=== PATIENT | female | born 1950 | race Two or more races ===

== ENCOUNTER 2019-01-27 04:43 | Inpatient (IN) | payer MEDICARE ==
[~2019-01-27] VITALS: Ht 175.3 cm; Wt 82.8 kg
[2019-01-27] MEDS ORDERED: ACETAMINOPHEN 325 MG TABLET PO PRN (05:00)
[2019-01-27] MEDS ORDERED: ZOLPIDEM TARTRATE 5 MG TABLET PO PRN (05:00)
[2019-01-27] MEDS ORDERED: MAGNESIUM HYDROXIDE 30 ML UDC PO PRN (05:00)
[2019-01-27] MEDS ORDERED: CEPH-570 PO (05:08)
[2019-01-27 05:10] VITALS: BP 142/66
[2019-01-27] MEDS ORDERED: TRAZ-182 PO (05:19)
[2019-01-27] MEDS ORDERED: TRAM50TA2 PO (05:19)
[2019-01-27] MEDS ORDERED: QUET200T PO (05:19)
[2019-01-27] MEDS ORDERED: LITH300T3 PO (05:19)
[2019-01-27] MEDS ORDERED: LAMO200T2 PO (05:19)
[2019-01-27] MEDS ORDERED: LURA80TA PO (05:19)
[2019-01-27] MEDS ORDERED: LEVO75TA7 PO (05:19)
[2019-01-27] MEDS ORDERED: SIMV20TA6 PO (05:19)
[2019-01-27] MEDS ORDERED: BACL10TA PO (05:19)
--- NOTE | 2019-01-27 06:14 | NUR ---
GPS-COMPUTER INFORMATION SYSTEMS INSTRUCTOR NOTES: ADMITTED A 68 YR-OLD,FEMALE ADMITTED ON 5150 FOR DTS. PER HOLD, A/O X4, AMBULATORY, IN NO APPARENT DISTRESS, PT NOTED WITH DEPRESSED MOOD AND CONGRUENT AFFECT, SCATTERED TOPICS AND EMOTIONS. PT DENIED ACTIVE HI OR PARANOIA AT THIS TIME. NON-COMPLIANT WITH MEDICATIONS. PER PT HE IS DEPRESSED BECAUSE OF HIS BOYFRIEND AND "IM SUICIDAL BUT I DONT HAVE PLAN" REALITY ORIENTATION PROVIDED. NO C/O PAIN OR DISCOMFORT NOTED. HEAD TO TOE ASSESSMENT DONE SKIN INTACT, DR. MONTELONGO ORDERED NOTIFIED, ALL BELONGINGS CHECKED, BED LOCKED AND PLACED ON LOWEST POSITION TO MAINTAIN SAFETY. FALL PRECAUTIONS IMPLEMENTED. WILL CONTINUE TO MONITOR Q15 MINS. FOR SAFETY AND BEHAVIOR.
--- NOTE | 2019-01-27 06:37 | NUR ---
SPOKE TO PERSON TO NOTIFY CORINE MOISE AWARE PT IS ADMITTED TO [facility]
--- NOTE | 2019-01-27 06:52 | NUR ---
ENDORSE NEXT SHIFT TO CALL [facility]. CHARGE NURSE AWARE. PER HOSPITALIST ENDORSE TO AM DarrenD
[2019-01-27 08:00] VITALS: BP 135/80
[2019-01-27 16:00] VITALS: BP 152/90
[2019-01-27] MEDS: SIMVASTATIN 20 MG TABLET PO SCH (17:39)
[2019-01-27] MEDS: BACLOFEN (10 MG) 10 MG TABLET PO SCH (17:39)
[2019-01-27] MEDS: LEVOTHYROXINE SODIUM 75 MCG TABLET PO SCH (17:39)
[2019-01-27] MEDS: CEPHALEXIN MONOHYDRATE 500 MG CAPSULE PO SCH (17:39)
[2019-01-27 20:00] VITALS: BP 137/77
[2019-01-27] MEDS: LITHIUM CARBONATE (300 MG CAP) 300 MG CAPSULE PO SCH (21:00)
[2019-01-27] MEDS: LamoTRIgine 100 MG TABLET PO SCH (21:00)
[2019-01-27] MEDS: QUETIAPINE FUMARATE 100 MG TABLET PO SCH (21:45)
[2019-01-27] MEDS: LORAZEPAM 0.5 MG TABLET PO PRN (22:50)
[2019-01-28] MEDS: BACLOFEN (10 MG) 10 MG TABLET PO SCH ×3 (06:58→17:48)
--- NOTE | 2019-01-28 06:58 | NUR ---
RN NOTES PATIENT ASKED FOR HER BACLOFEN WHICH IS DUE FOR 0900AM... CHARGE NURSE MADE AWARE THAT I'M GOING TO GIVE PATIENT'S MEDICATION EARLIER THAN DUE TIME
[2019-01-28 07:17] LABS: BASOPHILS % (AUTO) 0.6 % (0.0-2.0); EOSINOPHILS % (AUTO) 4.2 % (0.0-6.0); HEMATOCRIT 42 % (33-45); HEMOGLOBIN 14.3 g/dL (11.5-14.8); LYMPHOCYTES # (AUTO) 2.1 /CMM (0.8-4.8); LYMPHOCYTES % (AUTO) 39.6 % (20.0-44.0); MEAN CORPUSCULAR HGB CONC 34 g/dl (31.0-36.0); MEAN CORPUSCULAR VOLUME 94 fL (82-100); MONOCYTES # (AUTO) 0.6 /CMM (0.1-1.30); MONOCYTES % (AUTO) 11.9 % (2.0-12.0); NEUTROPHILS # (AUTO) 2.3 /CMM (1.8-8.9); NEUTROPHILS % (AUTO) 43.7 % (43.0-81.0); PLATELET COUNT (AUTO) 238 /CMM (150-450); RED BLOOD CELL COUNT(AUTO) 4.45 MIL/uL (4.0-5.2); WHITE BLOOD COUNT (AUTO) 5.4 K/uL (4.3-11.0)
[2019-01-28 07:46] LABS: ALBUMIN 3.4 g/dL (3.4-5.0); BILIRUBIN,TOTAL 0.4 mg/dL (0.2-1.0); CREATININE 0.9 mg/dL (0.6-1.3); POTASSIUM 4.2 mmol/L (3.5-5.1); TOTAL PROTEIN, SERUM 6.3 g/dL (6.4-8.2)
[2019-01-28 07:48] LABS: CHOLESTEROL 130 mg/dL (<200); HDL CHOLESTEROL 51 mg/dL (40-60); LDL 73 mg/dL (0-99); TRIGLYCERIDES 49 mg/dL (30-150)
[2019-01-28 07:56] LABS: THYROID STIMULATING HORMONE 5.149 uIU/mL (0.358-3.74)
[2019-01-28 08:00] VITALS: BP 136/85
[2019-01-28] MEDS: LEVOTHYROXINE SODIUM 75 MCG TABLET PO SCH (08:25)
[2019-01-28] MEDS: LamoTRIgine 100 MG TABLET PO SCH ×2 (08:25→20:13)
[2019-01-28] MEDS: CEPHALEXIN MONOHYDRATE 500 MG CAPSULE PO SCH ×3 (08:25→17:48)
[2019-01-28] MEDS: LITHIUM CARBONATE (300 MG CAP) 300 MG CAPSULE PO SCH ×2 (08:25→20:13)
[2019-01-28] MEDS: TRAMADOL HCL 50 MG TABLET PO PRN ×2 (09:32→17:08)
[2019-01-28 16:00] VITALS: BP 125/72
[2019-01-28] MEDS: SIMVASTATIN 20 MG TABLET PO SCH (17:49)
[2019-01-28 19:52] VITALS: BP 143/96
[2019-01-28] MEDS: QUETIAPINE FUMARATE 100 MG TABLET PO SCH (21:15)
[2019-01-29] MEDS: TRAMADOL HCL 50 MG TABLET PO PRN ×2 (06:24→18:18)
[2019-01-29 08:00] VITALS: BP 126/83
[2019-01-29] MEDS: BACLOFEN (10 MG) 10 MG TABLET PO SCH ×3 (08:10→17:00)
[2019-01-29] MEDS: CEPHALEXIN MONOHYDRATE 500 MG CAPSULE PO SCH ×3 (08:10→17:00)
[2019-01-29] MEDS: LamoTRIgine 100 MG TABLET PO SCH ×2 (08:10→20:36)
[2019-01-29] MEDS: LEVOTHYROXINE SODIUM 75 MCG TABLET PO SCH (08:10)
[2019-01-29] MEDS: LITHIUM CARBONATE (300 MG CAP) 300 MG CAPSULE PO SCH ×2 (08:10→20:36)
[2019-01-29 16:00] VITALS: BP 148/82
[2019-01-29] MEDS: SIMVASTATIN 20 MG TABLET PO SCH (18:18)
[2019-01-29 20:25] VITALS: BP 123/63
[2019-01-29] MEDS: QUETIAPINE FUMARATE 100 MG TABLET PO SCH (21:15)
[2019-01-30] MEDS: MAG HYDROX/AL HYDROX/SIMETH 30 ML UDC PO PRN ×3 (03:47→16:37)
[2019-01-30 07:23] LABS: APPEARANCE,URINE CLEAR (CLEAR); BILIRUBIN,URINE NEGATIVE (NEGATIVE); BLOOD, URINE TRACE-INTA Ery/uL (NEGATIVE); COLOR,URINE YELLOW (YELLOW); KETONES,URINE NEGATIVE (NEGATIVE); LEUKOCYTE ESTERASE ,URINE NEGATIVE (NEGATIVE); NITRITE, URINE NEGATIVE (NEGATIVE); PROTEIN,URINE NEGATIVE (NEGATIVE); UGLUCOSE NEGATIVE (NEGATIVE); UROBILINOGEN,URINE 0.2 EU/dL (0.2)
[2019-01-30 07:30] LABS: BACTERIA,URINE Few /HPF (None Seen); SQUAMOUS EPITHELIAL CELL,UR Few /HPF (None Seen); WBC,URINE 0-2 /HPF (0-3)
[2019-01-30] MEDS: LEVOTHYROXINE SODIUM 75 MCG TABLET PO SCH (07:43)
[2019-01-30 08:00] VITALS: BP 147/91
[2019-01-30] MEDS: BACLOFEN (10 MG) 10 MG TABLET PO SCH ×3 (08:36→16:37)
[2019-01-30] MEDS: CEPHALEXIN MONOHYDRATE 500 MG CAPSULE PO SCH ×3 (08:36→16:37)
[2019-01-30] MEDS: LamoTRIgine 100 MG TABLET PO SCH ×2 (08:36→20:04)
[2019-01-30] MEDS: LITHIUM CARBONATE (300 MG CAP) 300 MG CAPSULE PO SCH ×2 (08:36→20:04)
--- NOTE | 2019-01-30 12:07 | NUR ---
SW contacted [facility] Address: [address] [place] [address] and spoke with Angelina, senior contracts administrator who stated pt is able to return back to the facility.
--- NOTE | 2019-01-30 13:30 | NUR ---
SW spoke with pts sister Xenia [phone] for collateral information and discharge planning.
--- NOTE | 2019-01-30 13:39 | NUR ---
INITIAL DISCHARGE PLAN: Patient will return to [facility] Address: [address] [facility], [place] [address] . WYATT spoke with Angelina, property administrator who stated pt is able to return back to the facility. WYATT will help form a safe and proper discharge in collaboration with .
--- NOTE | 2019-01-30 15:32 | NUR ---
SUPPORTIVE COUNSELING: SW discussed treatment plan with pt, pt was anxious and stated she did not want to stay in the hospital for that long. SW explained that part of her treatment was to discuss feelings of sadness or depression with SW or thoughts of Suicide. Pt agreed and signed treatment plan.
[2019-01-30 16:00] VITALS: BP 114/59
[2019-01-30] MEDS: SIMVASTATIN 20 MG TABLET PO SCH (17:51)
[2019-01-30 20:06] VITALS: BP 163/84
[2019-01-30] MEDS: LORAZEPAM 0.5 MG TABLET PO PRN (20:24)
[2019-01-30] MEDS: QUETIAPINE FUMARATE 100 MG TABLET PO SCH (21:05)
[2019-01-30 21:10] VITALS: BP 138/89
[2019-01-31 08:00] VITALS: BP 151/81
[2019-01-31] MEDS: BACLOFEN (10 MG) 10 MG TABLET PO SCH ×3 (08:32→17:18)
[2019-01-31] MEDS: PANTOPRAZOLE 40 MG TABLET.DR PO SCH (08:32)
[2019-01-31] MEDS: NICOTINE PATCH (21MG) 21 MG PATCH.TD24 TD SCH (08:32)
[2019-01-31] MEDS: CEPHALEXIN MONOHYDRATE 500 MG CAPSULE PO SCH ×2 (08:32→12:58)
[2019-01-31] MEDS: LITHIUM CARBONATE (300 MG CAP) 300 MG CAPSULE PO SCH ×2 (08:32→20:33)
[2019-01-31] MEDS: LEVOTHYROXINE SODIUM 75 MCG TABLET PO SCH (08:32)
[2019-01-31] MEDS: LamoTRIgine 100 MG TABLET PO SCH ×3 (09:00→20:32)
--- NOTE | 2019-01-31 15:51 | NUR ---
GROUP THERAPY: Pt was encouraged to attend group therapy pt stated, "I'm really tired and sleepy, I slept fine last night but I'm still so tired can you find out why I have been so tired." Pt was present but did not participate pt was playing with a puzzle.
[2019-01-31 16:00] VITALS: BP 158/93
--- NOTE | 2019-01-31 16:18 | NUR ---
SUPPORTIVE COUNSELING: Pt asked to speak to SW regarding per probable cause hearing that was scheduled on Tuesday01/29/19. Pt stated that no one spoke to her and that she does not remember signing her recertification. SW reminded patient that a patients rights advocate came to speak to her on Tuesday and she stated it never happened. Pt appeared paranoid and also stated that she was going to file a grievance for not being given the opportunity to attend her hearing. SW informed her that she was given the opportunity on Tuesday and she did not contest her recertification and the Technical Program Manager upheld the 5250 and now the psychiatrist will discharge patient when she is stable for discharge. Pt did not agree and stated she needed to speak to the psychiatrist right away. SW explained that the psychiatrist will come tomorrow morning an she can address her discharge concerns with him then.
[2019-01-31] MEDS: SIMVASTATIN 20 MG TABLET PO SCH (17:18)
[2019-01-31 20:00] VITALS: BP 135/75
[2019-01-31] MEDS: TRAMADOL HCL 50 MG TABLET PO PRN (20:33)
[2019-01-31] MEDS: QUETIAPINE FUMARATE 100 MG TABLET PO SCH (21:50)
[2019-02-01] MEDS: MAG HYDROX/AL HYDROX/SIMETH 30 ML UDC PO PRN (05:15)
[2019-02-01 08:00] VITALS: BP 133/77
[2019-02-01] MEDS: LEVOTHYROXINE SODIUM 75 MCG TABLET PO SCH (08:11)
[2019-02-01] MEDS: PANTOPRAZOLE 40 MG TABLET.DR PO SCH (08:11)
[2019-02-01] MEDS: LITHIUM CARBONATE (300 MG CAP) 300 MG CAPSULE PO SCH ×2 (08:12→21:19)
[2019-02-01] MEDS: NICOTINE PATCH (21MG) 21 MG PATCH.TD24 TD SCH (08:12)
[2019-02-01] MEDS: BACLOFEN (10 MG) 10 MG TABLET PO SCH ×3 (08:12→17:00)
[2019-02-01] MEDS: LamoTRIgine 100 MG TABLET PO SCH ×2 (08:12→21:20)
--- NOTE | 2019-02-01 13:06 | NUR ---
WYATT contacted [facility] Address: [address] [place] [address] and spoke with Angelina, project administrator and informed her pt will be discharged tomorrow 02/02/19, Angelina agreed with discharge.
[2019-02-01 16:13] VITALS: BP 140/82
[2019-02-01] MEDS: SIMVASTATIN 20 MG TABLET PO SCH (17:01)
[2019-02-01 20:00] VITALS: BP 144/77
[2019-02-01] MEDS: QUETIAPINE FUMARATE 100 MG TABLET PO SCH (21:20)
[2019-02-02] MEDS: LEVOTHYROXINE SODIUM 75 MCG TABLET PO SCH (07:41)
[2019-02-02] MEDS: PANTOPRAZOLE 40 MG TABLET.DR PO SCH (07:41)
[2019-02-02 08:00] VITALS: BP 131/78
[2019-02-02] MEDS: LITHIUM CARBONATE (300 MG CAP) 300 MG CAPSULE PO SCH (08:28)
[2019-02-02] MEDS: NICOTINE PATCH (21MG) 21 MG PATCH.TD24 TD SCH (08:29)
[2019-02-02] MEDS: LamoTRIgine 100 MG TABLET PO SCH (08:29)
[2019-02-02] MEDS: BACLOFEN (10 MG) 10 MG TABLET PO SCH ×3 (08:29→12:43)
--- NOTE | 2019-02-02 11:38 | NUR ---
DR. MONTELONGO GAVE AN ORDER TO D/C HOLD AND D/C TO [facility] AND TO FOLLOW UP WITH PSYCH AND MEDICAL DOCTORS. PT. WITHOUT DISTRESS, DENIES SUICIDAL AND HOMICIDAL. PT. SIGNED THE DISCHARGE PAPERS, BELONGINGS READY AND PICTURE TAKEN FOR THE SKIN ISSUES. KARINA RACHEL MADE AWARE FO THE DISCHARGE AND WROTE A PRESCRIPTIONS.
--- NOTE | 2019-02-02 13:20 | NUR ---
PT. LEFT THE UNIT VIA A TAXI AND WHEELED BY STAFF VIA A WHEELCHAIR WITH BELONGINGS. LEFT WITHOUT DISTRESS AND ON STABLE CONDITION. PT. INSTRUCTED ON MEDS TO CONTINUE AT HOME AND VERBALIZES UNDERSTANDING AND ADVISED TO MAKE A FOLLOW UP WITH PSYCH AND MEDICAL DOCTORS AND AGREED. V/S TAKEN: BP 150/93, NE 79, RR 18, TEMP 98.0 AND OXYGEN SAT 93%.
--- NOTE | 2019-02-02 13:20 | NUR ---
DISCHARGE NOTE: Pt will be discharged at 12:00pm via [facility] taxi voucher to [facility] Address: [address] [place] [address] . Pt did not want sister Xenia [phone] to be notified. Pt has a follow up appointment with Psychiatrist: Dr. Gamino Address: [address] [place] [address] on Tuesday February 05, 2019 at 9:00am. Pt will also follow up with [facility] Address: [address] [facility] [address], [place] [address] . Patient was referred to the [address] [address] / and was encouraged to present at 9am on Wednesday February 06, 2019. Additional resources included [facility] [address] [place] [address] and [facility] [address] [place] [address] . For smoking cessation, patient was referred to the [employer] and [employer] [id number]. Pt will also participate in a telephone meeting with [employer] [phone] on Sunday February 03, 2019 at 8:00am. The multidisciplinary exitcare form was done, printed, signed, and given to the patient. b. Addendum: 02/02/19 at 1503 by AMANDA SCHNEIDER Pts mood was euthymic with congruent affect. Pt denied visual/auditory hallucinations and denied suicidal/homicidal ideation.
--- NOTE | 2019-02-19 14:31 | NUR ---
SUBSTANCE ABUSE FOLLOW UP: unable to follow up due to patient having no phone.
== END 2019-02-02 13:20 | DRG 885 ==
LOC: GPS 04:43
PROVIDERS: ADMIT Psychiatry & Neurology Psychiatry; ATTEND Student in an Organized Health Care Education/Training Program
DX: F31.64 Bipolar disorder, current episode mixed, severe, with psychotic features (principal); N39.0 Urinary tract infection, site not specified; R45.851 Suicidal ideations; E78.5 Hyperlipidemia, unspecified; E03.9 Hypothyroidism, unspecified; F17.210 Nicotine dependence, cigarettes, uncomplicated; M19.90 Unspecified osteoarthritis, unspecified site; M54.9 Dorsalgia, unspecified; I50.9 Heart failure, unspecified; R42 Dizziness and giddiness; I08.0 Rheumatic disorders of both mitral and aortic valves
CPT/HCPCS: 36415; 71045-TC; 80053-TC; 80061-TC; 81000-TC; 83880; 84436-TC; 84443-TC; 85025-TC; 87081-TC; 93307-TC